=== PATIENT | female | born 1980 | race Caucasian/White ===

== ENCOUNTER 2018-10-02 11:02 | Emergency (ER) | payer OTHER ==
[~2018-10-02] VITALS: Ht 170.2 cm; Wt 108.0 kg
[2018-10-02 11:17] VITALS: BP 146/83
--- NOTE | 2018-10-02 11:24 | NUR ---
Patient ambulated to bed 5 with family. RN evaluating patient at bedside.
[2018-10-02 12:07] VITALS: BP 146/83
--- NOTE | 2018-10-02 12:07 | NUR ---
Linwood smith in ED - 10/02/18 at 1232 by [email or web address] Patient ambulated to bed 5 with family. RN evaluating patient at bedside.
--- NOTE | 2018-10-02 12:07 | NUR ---
BIB . AAO X4 C/O ABD PAIN X 1 MONTH, + DIARRHEA ON AND OFF FOR A MONTH ALSO, - VOMITING, - NAUSEA, + BLOATING, + GAS, LBM:10/02/18. AFEBRILE. PT STATES LOTS OF BURPING AND 10/10 PAIN TO UPPER ABDOMEN. DENIES SOB. HOB UP. BED SIDE RAILS UP X1. ON LOW BED POSITION, LOCKED. ER MADE AWARE OF PT STATUS.
--- NOTE | 2018-10-02 12:10 | NUR ---
DR FABIAN AT BEDSIDE FOR PT EVALUATION
--- NOTE | 2018-10-02 12:12 | NUR ---
PATIENT LEFT WITHOUT DISCHARGE PAPERS
--- NOTE | 2018-10-02 12:12 | NUR ---
Patient walked out of the emergency department.
== END 2018-10-02 12:12 | disposition home or self-care (01) ==
LOC: MED 11:02
DX: G89.29 Other chronic pain (principal); R10.9 Unspecified abdominal pain; Z90.49 Acquired absence of other specified parts of digestive tract; Z88.6 Allergy status to analgesic agent
CPT/HCPCS: 99281